=== PATIENT | female | born 1945 | race African-American/Black ===

== ENCOUNTER 2022-05-27 20:04 | Inpatient (IN) | payer MEDICARE, OTHER ==
[~2022-05-27] VITALS: Ht 170.2 cm; Wt 73.2 kg
[2022-05-27] MEDS ORDERED: DiphenhydrAMINE HCL 50 MG/ML VIAL IVP ONE (20:15)
[2022-05-27 20:24] LABS: BASOPHILS % (AUTO) 0.8 % (0.0-2.0); EOSINOPHILS % (AUTO) 1.5 % (1.0-6.0); HEMATOCRIT 40.2 % (36-46); LYMPHOCYTES # (AUTO) 2.8 K/uL (1.0-4.8); LYMPHOCYTES % (AUTO) 49.7 % (22.0-44.0); MEAN CORPUSCULAR HEMOGLOBIN 27.7 pg (26.0-34.0); MEAN CORPUSCULAR HGB CONC 32.3 G/dL (31.0-37.0); MEAN CORPUSCULAR VOLUME 86 fL (80-100); MONOCYTES # (AUTO) 0.6 K/uL (0.1-1.0); MONOCYTES % (AUTO) 10.5 % (2.0-9.0); NEUTROPHILS # (AUTO) 2.1 K/uL (1.8-7.7); NEUTROPHILS % (AUTO) 37.5 % (40.0-70.0); PLATELET COUNT (AUTO) 209 K/uL (150-450); RED BLOOD CELL COUNT(AUTO) 4.68 MIL/uL (4.00-5.20); RED CELL DISTRIBUTION WIDTH 15.2 % (11.5-14.5)
[2022-05-27] MEDS ORDERED: IOHEXOL 350 MG/ML 75 ML VIAL ONE (20:36)
[2022-05-27] MEDS ORDERED: SODIUM CHLORIDE 0.9% 100 ML ONE (20:36)
[2022-05-27 20:37] LABS: PROTHROMBIN TIME 10.3 SEC (9.4-11.6)
[2022-05-27 20:41] LABS: ANION GAP 6 mmol/L (8-16); CARBON DIOXIDE 27 mmol/L (22-29); CHLORIDE 108 mmol/L (98-107); CREATININE 0.79 mg/dL (0.60-1.30); GLUCOSE,RANDOM 95 mg/dL (70-110); SODIUM SERUM 141 mmol/L (136-145); UREA NITROGEN, BLOOD 11 mg/dL (7-18)
[2022-05-27 20:45] LABS: ALANINE AMINOTRANSFERASE 23 U/L (12-78); ALBUMIN 2.9 g/dL (3.4-5.0); ALKALINE PHOSPHATASE 117 U/L (46-116); ASPARTATE AMINOTRANSFERASE 14 U/L (15-37); BILIRUBIN,TOTAL 0.3 mg/dL (0.1-1.0); TOTAL PROTEIN, SERUM 6.9 g/dL (6.4-8.2)
[2022-05-27 20:48] LABS: GLOMERULAR FILTR. RATE CALC > 60 mL/min (>60)
[2022-05-27 21:11] LABS: COVID AG,FIA SOURCE NASAL SWAB
[2022-05-27 21:54] LABS: APPEARANCE,URINE CLEAR (CLEAR); BILIRUBIN,URINE NEGATIVE (NEGATIVE); GLUCOSE, URINE (UA) NEGATIVE (NEGATIVE); KETONES,URINE NEGATIVE (NEGATIVE); LEUKOCYTE ESTERASE ,URINE NEGATIVE (NEGATIVE); NITRATE,URINE NEGATIVE (NEGATIVE); OCCULT BLOOD,URINE NEGATIVE (NEGATIVE); PH,URINE 6.5 (5.0-8.0); PROTEIN,URINE NEGATIVE (NEGATIVE); SPECIFIC GRAVITIY, URINE 1.026 (1.003-1.030); UROBILINOGEN,URINE <=1.0 mg/dL (<=1.0)
[2022-05-27 22:00] LABS: AMPHET/METH SCREEN,URINE NEGATIVE (NEGATIVE); BARBITURATE SCREEN, URINE NEGATIVE (NEGATIVE); BENZODIAZEPINES SCREEN,URINE NEGATIVE (NEGATIVE); CANNABINOID SCREEN,URINE NEGATIVE (NEGATIVE); COCAINE SCREEN,URINE NEGATIVE (NEGATIVE); METHADONE SCREEN, URINE NEGATIVE (NEGATIVE); OPIATE SCREEN,URINE NEGATIVE (NEGATIVE); PHENCYCLIDINE SCREEN,URINE NEGATIVE (NEGATIVE)
[2022-05-27 22:09] LABS: BACTERIA,URINE None Seen /HPF (None Seen); RBC,URINE None Seen /HPF (0-2); SQUAMOUS EPITHELIAL CELL,UR Rare /LPF (None Seen); WBC,URINE None Seen /HPF (0-5)
[2022-05-28 00:30] VITALS: BP 147/80
[2022-05-28] MEDS ORDERED: ACETAMINOPHEN 325 MG TABLET PO PRN (00:30)
[2022-05-28] MEDS ORDERED: HYDROCODONE/ACETAMINOPHEN 5-325 MG TABLET PO PRN (00:30)
[2022-05-28] MEDS ORDERED: IPRATROPIUM BROMIDE 0.5 MG/2.5 ML NEB SOLUTION NEB PRN (00:30)
[2022-05-28] MEDS ORDERED: MAGNESIUM HYDROXIDE SUSPENSION 30 ML UDCUP PO PRN (00:30)
[2022-05-28] MEDS ORDERED: MORPHINE SULFATE 2 MG/ML SYRINGE IVP PRN (00:30)
[2022-05-28] MEDS ORDERED: ZOLPIDEM TARTRATE 5 MG TABLET PO PRN (00:30)
[2022-05-28] MEDS ORDERED: ALBUTEROL SULFATE 2.5 MG/0.5 ML NEB SOLUTION NEB PRN (00:30)
[2022-05-28] MEDS ORDERED: BISACODYL 10 MG RECTAL RECTAL SUPPOSITORY PR PRN (00:30)
[2022-05-28] MEDS ORDERED: ONDANSETRON HCL 4 MG/2 ML VIAL IVP PRN (00:30)
[2022-05-28] MEDS ORDERED: TraMADol HCL 50 MG TABLET PO PRN (00:30)
[2022-05-28 01:12] LABS: CHOL/HDL RATIO 4.2 (3.9-5.7); CHOLESTEROL 217 mg/dL (131-200); FREE T4 (FREE THYROXINE) 0.96 ng/dL (0.76-1.46); HDL CHOLESTEROL 52 mg/dL (40-60); LDL CHOL (CALC.) 135 mg/dL (0-130); THYROID STIMULATING HORMONE 0.29 uIU/mL (0.36-3.74); TRIGLYCERIDES 148 mg/dL (15-150)
[2022-05-28 04:00] VITALS: BP 147/62
[2022-05-28 07:25] VITALS: BP 157/76
[2022-05-28 07:30] VITALS: BP 157/76
[2022-05-28] MEDS ORDERED: OMEPRAZOLE 20 MG CAPSULE PO SCH (09:00)
[2022-05-28] MEDS ORDERED: ASPIRIN 81 MG CHEWABLE TABLET PO SCH (09:00)
[2022-05-28] MEDS ORDERED: METOPROLOL TARTRATE 25 MG TABLET PO SCH (09:00)
[2022-05-28] MEDS ORDERED: HYDROCHLOROTHIAZIDE 25 MG TABLET PO SCH (09:00)
[2022-05-28] MEDS ORDERED: LOSARTAN POTASSIUM 50 MG TABLET PO SCH (09:00)
[2022-05-28] MEDS: HEPARIN SODIUM,PORCINE 5,000 UNITS/ML VIAL SQ SCH ×2 (10:00→15:55)
[2022-05-28 11:25] VITALS: BP 140/71
[2022-05-28] MEDS ORDERED: LORazepam 2 MG/ML VIAL IVP ONE (13:15)
[2022-05-28 15:30] VITALS: BP 122/59
[2022-05-28] MEDS ORDERED: PRAVASTATIN SODIUM 40 MG TABLET PO SCH (21:00)
== END 2022-05-28 18:40 | disposition home or self-care (01) | DRG 71 ==
LOC: EMS 20:06 → 5S 05-28 00:42
PROVIDERS: ADMIT Hospitalist; ATTEND Hospitalist
DX: G93.40 Encephalopathy, unspecified (principal); G45.9 Transient cerebral ischemic attack, unspecified; M54.50 Low back pain, unspecified; I10 Essential (primary) hypertension; I25.10 Atherosclerotic heart disease of native coronary artery without angina pectoris; Z20.822 Contact with and (suspected) exposure to COVID-19; R47.81 Slurred speech; R29.702 NIHSS score 2; Z79.01 Long term (current) use of anticoagulants; Z95.5 Presence of coronary angioplasty implant and graft
CPT/HCPCS: 70496; 70498; 70551; 71045; 80053; 80061; 81001; 82948; 84439; 84443; 84484; 85025; 85610; 85730; 86850; 86900; 86901; 92610; 93005; 93306; 93880; 97163; 97166; 97530; 97535; 99291; G0378; J1200; J1644; J2060; J7050; Q9967; 36415-L1; 36415-TC; 70450; 70450-TC

== ENCOUNTER 2024-01-23 18:26 | Emergency (ER) | payer MEDICARE, BC, OTHER ==
[~2024-01-23] VITALS: Ht 172.7 cm; Wt 70.5 kg
[2024-01-23 19:24] VITALS: TEMP 98.5
[2024-01-23] MEDS ORDERED: MIRT-93 PO (19:31)
[2024-01-23] MEDS ORDERED: APIX5TAB PO (19:31)
[2024-01-23] MEDS ORDERED: METO50 PO (19:31)
[2024-01-23] MEDS ORDERED: LOSA100T59 PO (19:31)
[2024-01-23] MEDS ORDERED: TRAZ-252 PO (19:31)
[2024-01-23] MEDS ORDERED: TIZA-211 PO (19:31)
[2024-01-23] MEDS ORDERED: PARO40TA72 PO (19:31)
[2024-01-23] MEDS: TraMADol HCL 50 MG TABLET PO ONE ×2 (20:54→23:02)
[2024-01-23] MEDS ORDERED: TRAM-559 PO (22:07)
[2024-01-23 23:15] VITALS: BP 135/71; PULSE 83; RESP 16
== END 2024-01-23 23:15 | disposition home or self-care (01) ==
LOC: EMS 18:26
DX: S82.402A Unspecified fracture of shaft of left fibula, initial encounter for closed fracture (principal); S80.02XA Contusion of left knee, initial encounter; I10 Essential (primary) hypertension; W01.0XXA Fall on same level from slipping, tripping and stumbling without subsequent striking against object, initial encounter; Y93.89 Activity, other specified; Y92.89 Other specified places as the place of occurrence of the external cause; Y99.8 Other external cause status
CPT/HCPCS: 99284; 73562-TC; 73610-TC; Z7502; Z7610